=== PATIENT | male | born 1935 | race Caucasian/White ===

== ENCOUNTER 2022-08-06 13:46 | Emergency (ER) | payer OTHER ==
[~2022-08-06] VITALS: Ht 162.6 cm; Wt 72.6 kg
[2022-08-06 14:12] VITALS: BP 120/79; PULSE 81; RESP 18; TEMP 97.8; O2SAT 98
[2022-08-06 14:30] VITALS: O2SAT 98
[2022-08-06 16:36] LABS: BASOPHILS % (AUTO) 0.6 % (0.0-2.0); EOSINOPHILS # (AUTO) 0.1 K/uL (0-0.4); HEMATOCRIT 39.1 % (36-52); HEMOGLOBIN 13.3 g/dL (12.0-18.0); LYMPHOCYTES % (AUTO) 24.5 % (20.5-51.1); MEAN CORPUSCULAR HEMOGLOBIN 30 pg (27-31); MEAN CORPUSCULAR HGB CONC 34 g/dL (33-37); MEAN CORPUSCULAR VOLUME 87.3 fL (80-94); MONOCYTES # (AUTO) 0.5 K/uL (0.8-1.0); MONOCYTES % (AUTO) 6.2 % (1.7-9.3); NEUTROPHILS # (AUTO) 5.4 K/uL (1.8-7.7); NEUTROPHILS % (AUTO) 67.7 % (42.2-75.2); PLATELET COUNT (AUTO) 261 K/uL (140-450); RED BLOOD CELL COUNT(AUTO) 4.48 MIL/uL (4.20-6.10); RED CELL DISTRIBUTION WIDTH 13.7 % (11.6-13.7)
[2022-08-06 16:45] LABS: ALBUMIN 3.7 g/dL (3.4-5.0); ANION GAP 11.2 (8-16); ASPARTATE AMINOTRANSFERASE 20 U/L (15-37); CARBON DIOXIDE 27.5 mmol/L (21-32); CHLORIDE 103 mmol/L (98-107); GLUCOSE 105 mg/dL (74-106); LIPASE 68 U/L (73-393); POTASSIUM 4.7 mmol/L (3.5-5.1); SODIUM SERUM 137 mmol/L (136-145); UREA NITROGEN, BLOOD 13 mg/dL (7-18)
[2022-08-06] MEDS ORDERED: MAGN296S70 PO ×3 (17:46→18:33)
[2022-08-06] MEDS ORDERED: DOCU1TAB73 PO ×3 (17:46→18:33)
[2022-08-06] MEDS ORDERED: CIPR500T9 PO ×3 (17:46→18:33)
[2022-08-06] MEDS ORDERED: GLYPS RC ×3 (17:46→18:33)
[2022-08-06] MEDS ORDERED: NA P133N1 RC ×3 (17:46→18:33)
[2022-08-06] MEDS ORDERED: TAMS0.4C96 PO ×3 (17:46→18:33)
[2022-08-06] MEDS ORDERED: ONDA-188 PO ×2 (18:04→18:33)
[2022-08-06] MEDS ORDERED: IBUP-1842 PO ×2 (18:04→18:33)
== END 2022-08-06 18:05 | disposition home or self-care (01) ==
LOC: MED 13:46
DX: K56.41 Fecal impaction (principal); N20.1 Calculus of ureter; N30.90 Cystitis, unspecified without hematuria; K59.00 Constipation, unspecified; K46.9 Unspecified abdominal hernia without obstruction or gangrene; Z79.899 Other long term (current) drug therapy
CPT/HCPCS: 36415; 74176; 76870; 80053; 83690; 85025; 99285; Q0092

== ENCOUNTER 2022-09-01 13:59 | Inpatient (IN) | payer OTHER ==
[~2022-09-01] VITALS: Ht 162.6 cm; Wt 61.2 kg
[~2022-09-01 13:59] MED LIST: CIPR500T9 PO; DOCU1TAB73 PO; GLYPS RC; IBUP-1842 PO; MAGN296S70 PO; NA P133N1 RC; ONDA-188 PO; TAMS0.4C96 PO
[2022-09-01 14:21] VITALS: BP 175/115; PULSE 142; RESP 20; TEMP 97.7; O2SAT 97
[2022-09-01] MEDS ORDERED: NACL 0.9% 1,000 ML IV ONE (14:50)
[2022-09-01] MEDS ORDERED: MORPHINE SULFATE 4 MG/ML SYR IVP ONE (14:50)
[2022-09-01] MEDS ORDERED: ONDANSETRON 4 MG/2 ML VIAL IVP ONE (14:50)
[2022-09-01 15:00] VITALS: O2SAT 97
--- NOTE | 2022-09-01 15:00 | NUR ---
86 y/o MALE PATIENT PRESENTS TO ED WITH CHEIF COMPLAINT OF NON RADIATING LOWER ABD PAIN SINCE LAST NIGHT. PT PRESENTS SIGNS OF TACHYCARDIA WITH A HR OF 118. PT STATES HE ATE SPICY FOOD NIGHT BEFORE AND WAS GIVEN PEPTO BISMOL. DAUGHTER STATED PT HAS HX OF 2 HERNIAS EVALUATED BY A SURGEON 3 DAYS AGO. PT HAS BEEN DENIES N/V/D; SKIN IS PINK/WARM/DRY; AAOX4 WITH EVEN AND STEADY GAIT; LUNGS CLEAR BL; HR EVEN AND REGULAR; PT DENIES ANY FEVER, CP, SOB, OR COUGH AT THIS TIME; PATIENT STATES PAIN OF 9/10 AT THIS TIME; PATIENT POSITIONED FOR COMFORT; HOB ELEVATED; BEDRAILS UP X2; BED DOWN. ER MD MADE AWARE OF PT STATUS. PMHX INGUINAL HERNIA KIDNEY STONES NKA
[2022-09-01 15:08] LABS: BASOPHILS % (AUTO) 0.2 % (0.0-2.0); EOSINOPHILS % (AUTO) 0.1 % (0.0-4.0); HEMATOCRIT 40.2 % (36-52); HEMOGLOBIN 13.5 g/dL (12.0-18.0); LYMPHOCYTES # (AUTO) 1.4 K/uL (2.0-11.5); MEAN CORPUSCULAR HEMOGLOBIN 30 pg (27-31); MEAN CORPUSCULAR HGB CONC 34 g/dL (33-37); MEAN CORPUSCULAR VOLUME 88.6 fL (80-94); MONOCYTES # (AUTO) 0.3 K/uL (0.8-1.0); MONOCYTES % (AUTO) 4.3 % (1.7-9.3); NEUTROPHILS # (AUTO) 5.3 K/uL (1.8-7.7); NEUTROPHILS % (AUTO) 75.4 % (42.2-75.2); PLATELET COUNT (AUTO) 207 K/uL (140-450); RED BLOOD CELL COUNT(AUTO) 4.54 MIL/uL (4.20-6.10); RED CELL DISTRIBUTION WIDTH 14.4 % (11.6-13.7); WHITE BLOOD COUNT (AUTO) 7.1 K/uL (4.8-10.8)
--- NOTE | 2022-09-01 15:10 | NUR ---
PT HAS BEEN CHANGED INTO A GOWN AND POSITINED FOR COMFORT. PT HAS BEEN PLACED ON THE MONITOR. CALL LIGHT WITH IN REACH. FAMILY AT BEDSIDE.
[2022-09-01 15:22] LABS: ALBUMIN 4.1 g/dL (3.4-5.0); ANION GAP 14.8 (8-16); ASPARTATE AMINOTRANSFERASE 20 U/L (15-37); CARBON DIOXIDE 26.6 mmol/L (21-32); CHLORIDE 102 mmol/L (98-107); CREATININE 0.9 mg/dL (0.6-1.3); GLUCOSE 119 mg/dL (74-106); LIPASE 43 U/L (73-393); POTASSIUM 3.4 mmol/L (3.5-5.1); SODIUM SERUM 140 mmol/L (136-145); TOTAL BILIRUBIN 1.3 mg/dL (0.0-1.0); UREA NITROGEN, BLOOD 11 mg/dL (7-18)
--- NOTE | 2022-09-01 15:30 | NUR ---
PT HAS BEEN MEDICATED PER PROVIDERS ORDERS
[2022-09-01] MEDS ORDERED: DILTIAZEM 25 MG/5 ML VIAL IVP ONE ×2 (15:45→16:25)
--- NOTE | 2022-09-01 16:00 | NUR ---
PT HAS BEEN STRAIGHT CATHED PER PROVIDERS ORDERS. 100 MLS OF URINE OUTPUT COLLECTED.
[2022-09-01 16:17] LABS: APPEARANCE,URINE CLEAR (CLEAR); BILIRUBIN,URINE NEGATIVE (NEGATIVE); BLOOD, URINE 3+ (NEGATIVE); COLOR,URINE YELLOW (YELLOW); LEUKOCYTE ESTERASE ,URINE NEGATIVE (NEGATIVE); NITRITE, URINE NEGATIVE (NEGATIVE); UGLUCOSE NEGATIVE (NEGATIVE)
[2022-09-01] MEDS ORDERED: DILTIAZEM 125 MG in DEXTROSE 5% 100 ML IV ONE (16:25)
[2022-09-01 16:30] LABS: RBC,URINE 20-50 /HPF (0-5)
--- NOTE | 2022-09-01 16:30 | NUR ---
PER PROVIDERS ORDERS PT WILL BE ADMITTED AND PLACED ON CARDIZAM DRIP.
[2022-09-01] MEDS ORDERED: DILTIAZEM 125 MG in DEXTROSE 5% 100 ML IV SCH (16:34)
[2022-09-01] MEDS ORDERED: MORPHINE SULFATE 2 MG/ML SYR IVP STA (16:47)
[2022-09-01] MEDS ORDERED: HYDROcodone/APAP 5/325 MG 1 TAB TAB PO PRN (16:50)
[2022-09-01] MEDS ORDERED: ZOLPIDEM 5 MG TAB PO PRN (16:50)
[2022-09-01] MEDS ORDERED: ONDANSETRON 4 MG/2 ML VIAL IVP PRN (16:50)
[2022-09-01] MEDS ORDERED: MAG SULF 2000 MG/WATER PREMIX 50 ML IV PRN (16:50)
[2022-09-01] MEDS ORDERED: ACETAMINOPHEN 325 MG TAB PO PRN (16:50)
[2022-09-01] MEDS ORDERED: POTASSIUM CHLORIDE 10 MEQ TABER PO PRN (16:50)
[2022-09-01] MEDS ORDERED: KCL 20 MEQ IN 100 mL PREMIX 200 ML IV PRN (16:50)
[2022-09-01] MEDS ORDERED: LORazepam 1 MG TAB PO PRN (16:50)
[2022-09-01] MEDS ORDERED: MORPHINE SULFATE 4 MG/ML SYR IVP PRN (16:50)
--- NOTE | 2022-09-01 17:00 | NUR ---
PERSISTENT ALEJANDRO RVR, HYPERTENSIVE ADDITIONAL DOSE OF CARDIZEM BOLUS GIVEN
--- NOTE | 2022-09-01 17:06 | NUR ---
BOOD PRESSURE 97/56, HR =82 MD BEBETO MADE AWARE . CARDIZEM GTT HELD
[2022-09-01] MEDS ORDERED: hydrALAZINE 20 MG/ML VIAL IVP PRN (17:35)
--- NOTE | 2022-09-01 17:43 | NUR ---
The patient's care was reviewed and supervised by JOSE SHAIKH RN.
--- NOTE | 2022-09-01 17:44 | NUR ---
DR ALARCON NOTIFIED TO UPDATE HIM OF PT STATUS ,VS, HEART RYTHM, ORDER RECEIVED TO DOWNGRADE PT TO TELE
--- NOTE | 2022-09-01 18:16 | NUR ---
PT REFUSED MORPHINE, STATED HE HAS NO ABDOMINAL PAIN AT THIS TIME. RESTING COMFORTABLY AT THIS TIME.
--- NOTE | 2022-09-01 18:17 | NUR ---
Patient will be admitted to care of DR. ALARCON. Admited to TELE. Will go to room 123B. Belongings list completed. Report to SERGE ACOSTA. Addendum: 09/01/22 at 1830 by [email or web address] REPORT GIVEN TO SIMBA ACOSTA
[2022-09-01] MEDS: FUROSEMIDE 40 MG/4 ML VIAL IVP SCH ×2 (18:28→21:31)
[2022-09-01] MEDS: METOPROLOL 50 MG TAB PO SCH (18:28)
[2022-09-01 18:31] VITALS: BP 146/104; PULSE 113; RESP 18; TEMP 97.2; O2SAT 99
--- NOTE | 2022-09-01 18:34 | NUR ---
patient received from ER via rcapron A/OX4 , VS TAKEN BP HIGH MEDS GIVEN , MONITOR APPLIED , SKIN INTACT BED REST , TWO IV RIGHT WRIST 20GAGE INTACT , AND LEFT WRIST 20GAGE INTACT , SAFETY BPROACTION ON NPLACE , SIDE RAILS UP X2 , BED IN LOWER POSITION , CALL LIGHT WITHIN REACH , ON NASAL CANNULA 2 LITER O2 , PATIENT STILL UNDER OBSERVE .
[2022-09-01 18:39] VITALS: PULSE 113; RESP 18; O2SAT 99
--- NOTE | 2022-09-01 19:17 | NUR ---
report given to morelia bell night nurses all his question answered .
--- NOTE | 2022-09-01 19:18 | NUR ---
RECEIVED BEDSIDE REPORT FROM DAYSHIFT RN FOR CONTINUITY OF CARE. PATIENT IS AWAKE AND STABLE. A&OX3. YORUBA SPEAKING ONLY. OFFERED VOYCE BUT PATIENT PREFERS FAMILY TO TRANSLATE BASIC NEEDS. FAMILY AT BEDSIDE CURRENTLY. ABLE TO FOLLOW COMMANDS AND VERBALIZE NEEDS. DENIES PAIN. ON ROOM AIR WITH NO APPARENT S/SX OF ACUTE DISTRESS. RESPIRATIONS EVEN AND UNLABORED. PATIENT IS CURRENTLY ON BEDREST. PATIENT IS SOILED. CHANGED PATIENT WITH JONE FLOORING MECHANIC. TOLERATED WELL. LAC 20G AND RFA 20G PATENT/INTACT SL. POC AND WHITE COMMUNICATION BOARD UPDATED. ALL SAFETY MEASURES IN PLACE. CALL LIGHT WITHIN REACH. ENCOURAGED TO USE CALL LIGHT FOR ANY NEEDS/ASSISTANCE. BED IN LOW/LOCKED POSITION. SIDE RAILS X2 UP. WILL CONTINUE TO MONITOR.
[2022-09-01 20:00] VITALS: BP 151/104; PULSE 123; PULSE 138; RESP 18; TEMP 99; O2SAT 99
--- NOTE | 2022-09-01 20:00 | NUR ---
Patient's Plan of Care was discussed and reviewed with PERI: LUCILA
[2022-09-01] MEDS: METOPROLOL 5 MG/5 ML VIAL IV PRN (20:14)
[2022-09-01] MEDS ORDERED: METOPROLOL 50 MG TAB PO SCH (21:00)
--- NOTE | 2022-09-01 21:20 | NUR ---
PATIENT IS CURRENTLY CONFUSED. RE-ORIENTED TO HOSPITAL ENVIRONMENT. BED ALARM ACTIVATED AND WILL ENSURE FREQUENT ROUND FOR SAFETY. PATIENT IS SOILED. CLEANED AND CHANGED PATIENT. DENIES PAIN. RESPIRATIONS EVEN AND UNLABORED WITH NO APPARENT S/SX OF ACUTE DISTRESS. WHITE COMMUNICATION BOARD UPDATED. ALL SAFETY MEASURES IN PLACE. CALL LIGHT WITHIN REACH. BED IN LOW/LOCKED POSITION. WILL CONTINUE TO MONITOR.
--- NOTE | 2022-09-01 23:30 | NUR ---
PATIENT CONTINUES TO BE RESTLESS/CONFUSED. SEVERAL ATTEMPTS TO GET OUT OF BED. REORIENTED PATIENT TO SURROUNDINGS. CONTACTED MD FOR IV PRN.
[2022-09-01] MEDS ORDERED: LORazepam 2 MG/ML VIAL IVP ONE (23:45)
[2022-09-02] VITALS (7 sets, daily range): BP systolic 121–164; BP diastolic 64–85; PULSE 83–130; RESP 16–20; TEMP 96.9–98.9; O2SAT 96–99
[2022-09-02] MEDS ORDERED: LORazepam 2 MG/ML VIAL ONE (00:09)
--- NOTE | 2022-09-02 01:20 | NUR ---
PATIENT IS CALM, RESTING, AND ASLEEP WITH NO FACIAL GRIMACING. FLACC=0. CHEST IS RISING AND FALLING SYMMETRICALLY. RESPIRATIONS EVEN AND UNLABORED WITH NO APPARENT S/SX OF ACUTE DISTRESS. WHITE COMMUNICATION BOARD UPDATED. ALL SAFETY MEASURES IN PLACE. CALL LIGHT WITHIN REACH. BED IN LOW/LOCKED POSITION. WILL CONTINUE TO MONITOR.
[2022-09-02] MEDS: METOPROLOL 5 MG/5 ML VIAL IV PRN (02:50)
--- NOTE | 2022-09-02 03:00 | NUR ---
PATIENT'S BP 170/110. ENDORSED TO ROCCO RN FOR IVP PRN COVERAGE PER MD ORDER. ADMINISTERED PRN PER MD ORDER. TOLERATED WELL. WILL REASSESS BP AT 0350. FLACC=0. RESPIRATIONS EVEN AND UNLABORED WITH NO APPARENT S/SX OF ACUTE DISTRESS. CHEST IS RISING AND FALLING SYMMETRICALLY. WHITE COMMUNICATION BOARD UPDATED. ALL SAFETY MEASURES IN PLACE. CALL LIGHT WITHIN REACH. BED IN LOW/LOCKED POSITION. WILL CONTINUE TO MONITOR.
[2022-09-02 04:37] LABS: BASOPHILS % (AUTO) 0.4 % (0.0-2.0); EOSINOPHILS % (AUTO) 0.2 % (0.0-4.0); HEMATOCRIT 38.5 % (36-52); HEMOGLOBIN 13.3 g/dL (12.0-18.0); LYMPHOCYTES # (AUTO) 1.4 K/uL (2.0-11.5); LYMPHOCYTES % (AUTO) 16.9 % (20.5-51.1); MEAN CORPUSCULAR HEMOGLOBIN 30 pg (27-31); MEAN CORPUSCULAR HGB CONC 35 g/dL (33-37); MEAN CORPUSCULAR VOLUME 86.7 fL (80-94); MONOCYTES # (AUTO) 0.7 K/uL (0.8-1.0); MONOCYTES % (AUTO) 8.2 % (1.7-9.3); NEUTROPHILS # (AUTO) 6.4 K/uL (1.8-7.7); NEUTROPHILS % (AUTO) 74.3 % (42.2-75.2); PLATELET COUNT (AUTO) 198 K/uL (140-450); RED BLOOD CELL COUNT(AUTO) 4.44 MIL/uL (4.20-6.10); WHITE BLOOD COUNT (AUTO) 8.6 K/uL (4.8-10.8)
[2022-09-02 05:20] LABS: ANION GAP 11.9 (8-16); CHLORIDE 114 mmol/L (98-107); CREATININE 0.9 mg/dL (0.6-1.3); GLUCOSE 124 mg/dL (74-106); POTASSIUM 3.9 mmol/L (3.5-5.1); SODIUM SERUM 155 mmol/L (136-145); UREA NITROGEN, BLOOD 10 mg/dL (7-18)
--- NOTE | 2022-09-02 05:20 | NUR ---
CLEANED AND CHANGED PATIENT WITH JONE DRIVER RECRUITER. TOLERATED WELL. REASSESSED BP AT 131/84 130 BPM. FLACC=0. RESPIRATIONS EVEN AND UNLABORED WITH NO APPARENT S/SX OF ACUTE DISTRESS. WHITE COMMUNICATION BOARD UPDATED. ALL SAFETY MEASURES IN PLACE. CALL LIGHT WITHIN REACH. BED IN LOW/LOCKED POSITION. WILL CONTINUE TO MONITOR.
--- NOTE | 2022-09-02 07:20 | NUR ---
ENDORSED PATIENT TO TED WIHTT FOR CONTINUITY OF CARE. PATIENT IS STABLE.
--- NOTE | 2022-09-02 07:25 | NUR ---
RECEIVED PT FROM BRACER FOR CONTINUITY OF CARE. ASLEEP AT THIS TIME BUT ABUSABLE. RESP. EVEN AND UNLABORED. ON CONTINUOUS O2 @ 2L/NC. IV SITE INTACT. ON SALINE LOCK. NOT IN ANY DISTRESS OR DISCOMFORT. CALL LIGHT KEPT WITHIN REACH. WILL CONTINUE TO MONITOR.
--- NOTE | 2022-09-02 07:45 | NUR ---
Patient's Plan of Care was discussed and reviewed with PERI: MATEUS
[2022-09-02] MEDS ORDERED: DIGOXIN 0.25 MG/ML AMP IV SCH (08:03)
[2022-09-02] MEDS ORDERED: MAG SULF 2000 MG/WATER PREMIX 50 ML IV SCH (08:05)
--- NOTE | 2022-09-02 09:12 | NUR ---
PATIENT HAS BEEN SCREENED AND CATEGORIZED HIGH NUTRITION RISK. PATIENT WILL BE SEEN WITHIN 1-2 DAYS OF ADMISSION. 09/02/22-09/03/[address] BY JOE HOSKINS RD
--- NOTE | 2022-09-02 09:40 | NUR ---
DIGOXIN .5 MG IVP WAS GIVEN BY TIFFANIE ACOSTA. TOLERATED WELL.
[2022-09-02] MEDS: TAMSULOSIN 0.4 MG CAP PO SCH (12:23)
[2022-09-02] MEDS: METOPROLOL 50 MG TAB PO SCH ×2 (12:23→21:00)
[2022-09-02] MEDS: DOCUSATE SODIUM 100 MG GELCAP PO SCH (12:23)
--- NOTE | 2022-09-02 12:33 | NUR ---
SCHEDULED MEDICATIONS GIVEN. TOLERATED WELL.
--- NOTE | 2022-09-02 13:19 | NUR ---
DC PLANNING 86 YEAR OLD MALE PATIENT,AWAKE AND FOLLOWS SIMPLE COMMAND ADMITTED TO TELEMETRY FOR ABDOMINAL PAIN .ON 2 L NC. PATIENT HAS A HX OF NAUSEA AFTER EATING SPICY FOOD.PATIENT HAS HX OF HERNIA WELL BUT EVALUATED FOR SURGERY AND NOT A CANDIDATE.PATIENT WAS IN A.FIB WITH RVR IN ED AND WAS GIVEN DILTIAZEM.ON DIGOXIN IVP .METOPROLOL AND HYDRALAZINE FOR HTN.DC PLAN -DC HOME WHEN PATIENT RESPONDS TO TX AND PATIENT CONDITION IMPROVES.CM TO FOLLOW.
--- NOTE | 2022-09-02 13:47 | NUR ---
09/02/22 RD INITIAL ASSESSMENT COMPLETED PLEASE REFER TO NUTRITION ASSESSMENT UNDER CARE ACTIVITY FOR ESTIMATED NUTRITIONAL NEEDS. 1. CONTINUE CARDIAC DIET TOLERATED 2. RD WILL CONTINUE TO MONITOR PO INTAKE, WEIGHT, GI ISSUES AND NUTRITION RELATED LAB VALUES. 3. RD TO FOLLOW-UP 3-5 DAYS, MODERATE RISK EDILIA ACEVES, AMANDEEP
[2022-09-02] MEDS: DIGOXIN 0.25 MG/ML AMP IV SCH ×2 (14:18→16:00)
--- NOTE | 2022-09-02 14:18 | NUR ---
DIGOXIN 0.25MG IVP WAS GIVEN BY TIFFANIE ACOSTA. WASTED DIGOXIN 0.25MG.
[2022-09-02] MEDS ORDERED: DIGOXIN 0.25 MG/ML AMP IV ONE (18:31)
--- NOTE | 2022-09-02 18:44 | NUR ---
DIGOXIN 0.25 MG @1600 WAS NOT GIVEN D/T HR 84 TO 86.
--- NOTE | 2022-09-02 19:00 | NUR ---
BEDSIDE REPORT FROM DIAMOND CLEANER FOR CONTINUITY OF CARE. REMAINS STABLE.
--- NOTE | 2022-09-02 19:01 | NUR ---
RECEIVED BEDSIDE REPORT FROM TED WHITT FOR CONTINUITY OF CARE. PATIENT IS ASLEEP AND STABLE. FLACC=0. MONTENEGRIN SPEAKING ONLY. OFFERED VOYCE BUT PATIENT PREFERS FAMILY TO TRANSLATE BASIC NEEDS. FAMILY AT BEDSIDE. ON 2L VIA NC WITH NO APPARENT S/SX OF ACUTE DISTRESS. RESPIRATIONS EVEN AND UNLABORED. PATIENT IS CURRENTLY ON BEDREST. POC AND WHITE COMMUNICATION BOARD UPDATED. ALL SAFETY MEASURES IN PLACE. CALL LIGHT WITHIN REACH. BED IN LOW/LOCKED POSITION. SIDE RAILS X2 UP. WILL CONTINUE TO MONITOR.
--- NOTE | 2022-09-02 20:00 | NUR ---
Patient's Plan of Care was discussed and reviewed with LUCILA WHITT:
--- NOTE | 2022-09-02 21:15 | NUR ---
SCHEDULED LOPRESSOR HELD DUE TO PATIENT SLEEPING. AROUSED 3 TIMES BUT PATIENT REMAINED ASLEEP. FLACC=0. CHEST IS RISING AND FALLING SYMMETRICALLY. RESPIRATIONS EVEN AND UNLABORED WITH NO APPARENT S/SX OF ACUTE DISTRESS. PATIENT IS SOILED. CLEANED AND CHANGED PATIENT WITH JACQUES SPRAYER OPERATOR. WHITE COMMUNICATION BOARD UPDATED. ALL SAFETY MEASURES IN PLACE. CALL LIGHT WITHIN REACH. BED IN LOW/LOCKED POSITION. WILL CONTINUE TO MONITOR.
--- NOTE | 2022-09-02 23:15 | NUR ---
CLEANED AND CHANGED PATIENT WITH JACQUES TRANSITION SPECIALIST. TOLERATED WELL. DENIES PAIN. RESPIRATIONS EVEN AND UNLABORED WITH NO APPARENT S/SX OF ACUTE DISTRESS. WHITE COMMUNICATION BOARD UPDATED. ALL SAFETY MEASURES IN PLACE. CALL LIGHT WITHIN REACH. BED IN LOW/LOCKED POSITION. WILL CONTINUE TO MONITOR.
[2022-09-03] VITALS: BP 144/80; PULSE 102; PULSE 98; RESP 16; TEMP 98; O2SAT 98
--- NOTE | 2022-09-03 01:15 | NUR ---
ESTABLISHED 22G ON LEFT WRIST IN 1 ATTEMPT. TOLERATED WELL. CLEANED AND CHANGED PATIENT. TOLERATED WELL. DENIES PAIN. RESPIRATIONS EVEN AND UNLABORED WITH NO APPARENT S/SX OF ACUTE DISTRESS. WHITE COMMUNICATION BOARD UPDATED. ALL SAFETY MEASURES IN PLACE. CALL LIGHT WITHIN REACH. BED IN LOW/LOCKED POSITION. SIDE RAILS X2 UP. WILL CONTINUE TO MONITOR.
--- NOTE | 2022-09-03 03:15 | NUR ---
PATIENT AWOKE AND SLIGHTLY CONFUSED. RE-ORIENTED TO HOSPITAL SURROUNDING. PATIENT VERBALIZED UNDERSTANDING. DENIES PAIN. RESPIRATIONS EVEN AND UNLABORED WITH NO APPARENT S/SX OF ACUTE DISTRESS. WHITE COMMUNICATION BOARD UPDATED. ALL SAFETY MEASURES IN PLACE. CALL LIGHT WITHIN REACH. BED IN LOW/LOCKED POSITION. SIDE RAILS X2 UP. WILL CONTINUE TO MONITOR.
[2022-09-03 04:00] VITALS: BP 137/65; PULSE 111; PULSE 97; RESP 16; TEMP 98.1; O2SAT 98
[2022-09-03] MEDS: METOPROLOL 50 MG TAB PO SCH ×3 (05:00→21:52)
--- NOTE | 2022-09-03 05:20 | NUR ---
CLEANED AND CHANGED PATIENT WITH JACQUES BASS GUITAR TEACHER. TOLERATED WELL. ALL NEEDS MET AT THIS TIME. FLACC=0. RESPIRATIONS EVEN AND UNLABORED WITH NO APPARENT S/SX OF ACUTE DISTRESS. WHITE COMMUNICATION BOARD UPDATED. ALL SAFETY MEASURES IN PLACE. CALL LIGHT WITHIN REACH. BED IN LOW/LOCKED POSITION. WILL CONTINUE TO MONITOR.
--- NOTE | 2022-09-03 07:05 | NUR ---
RECEIVED REPORT FROM BARREL STAVE INSPECTOR NURSE FOR CONTINUITY OF CARE. PT STABLE AT THIS TIME.
--- NOTE | 2022-09-03 07:05 | NUR ---
ENDORSED PATIENT TO JOE RN FOR CONTINUITY OF CARE. PATIENT IS STABLE.
[2022-09-03 07:08] LABS: ANION GAP 9.9 (8-16); CARBON DIOXIDE 30.2 mmol/L (21-32); CHLORIDE 102 mmol/L (98-107); CREATININE 0.8 mg/dL (0.6-1.3); GLUCOSE 100 mg/dL (74-106); POTASSIUM 3.1 mmol/L (3.5-5.1); SODIUM SERUM 139 mmol/L (136-145); UREA NITROGEN, BLOOD 15 mg/dL (7-18)
[2022-09-03 08:00] VITALS: BP 155/94; PULSE 112; PULSE 125; PULSE 97; RESP 18; TEMP 97.2; O2SAT 97
[2022-09-03 08:11] LABS: BASOPHILS % (AUTO) 0.3 % (0.0-2.0); EOSINOPHILS % (AUTO) 0.1 % (0.0-4.0); HEMOGLOBIN 13.9 g/dL (12.0-18.0); LYMPHOCYTES # (AUTO) 0.9 K/uL (2.0-11.5); LYMPHOCYTES % (AUTO) 8.9 % (20.5-51.1); MEAN CORPUSCULAR HEMOGLOBIN 30 pg (27-31); MEAN CORPUSCULAR HGB CONC 35 g/dL (33-37); MEAN CORPUSCULAR VOLUME 86.5 fL (80-94); MONOCYTES # (AUTO) 0.7 K/uL (0.8-1.0); MONOCYTES % (AUTO) 6.4 % (1.7-9.3); NEUTROPHILS # (AUTO) 8.9 K/uL (1.8-7.7); NEUTROPHILS % (AUTO) 84.3 % (42.2-75.2); PLATELET COUNT (AUTO) 181 K/uL (140-450); RED BLOOD CELL COUNT(AUTO) 4.62 MIL/uL (4.20-6.10); RED CELL DISTRIBUTION WIDTH 14.2 % (11.6-13.7); WHITE BLOOD COUNT (AUTO) 10.5 K/uL (4.8-10.8)
[2022-09-03] MEDS: TAMSULOSIN 0.4 MG CAP PO SCH (09:36)
[2022-09-03] MEDS: DIGOXIN 0.125 MG TAB PO SCH (09:36)
[2022-09-03] MEDS: DOCUSATE SODIUM 100 MG GELCAP PO SCH (09:36)
[2022-09-03] MEDS ORDERED: FUROSEMIDE 40 MG/4 ML VIAL IVP SCH (11:00)
[2022-09-03 12:00] VITALS: BP 146/86; PULSE 91; PULSE 94; RESP 16; TEMP 98.8; O2SAT 98
[2022-09-03 16:00] VITALS: BP 153/92; PULSE 102; PULSE 91; RESP 18; TEMP 98.9; O2SAT 98
--- NOTE | 2022-09-03 19:27 | NUR ---
ENDORSED TO SUPERVISOR SKI PRODUCTION NURSE FOR CONTINUITY OF CARE. PT STABLE AT THIS TIME.
--- NOTE | 2022-09-03 19:30 | NUR ---
RECEIVED REPORT FROM DAY SHIFT NURSE JOE FOR CONTINUITY OF CARE. PATIENT IS A&O X2, FAROESE SPEAKING. PATIENT IS ON 2L NC, BREATHING IS NORMAL WITH SYMMETRICAL RISE AND FALL OF CHEST. IV IS A 22G L WRIST; NO FLUIDS RUNNING AT THIS TIME (SALINE LOCKED). PATIENT IS SLEEPING, LYING IN SEMI-FOWLERS POSITION WITH FAMILY AT BEDSIDE. BED IS IN LOWEST POSITION, WHEELS LOCKED, CALL LIGHT IN PLACE. WILL CONTINUE TO OBSERVE PATIENT.
[2022-09-03 20:00] VITALS: BP 121/97; PULSE 107; PULSE 109; RESP 18; TEMP 96.5; O2SAT 96
--- NOTE | 2022-09-03 22:00 | NUR ---
2100 MEDICATION WAS ADMINISTERED TO PATIENT SUCCESSFULLY WITHOUT ANY ISSUES WITH SWALLOWING. PATIENT IS LYING IN SEMI-FOWLERS POSITION. WILL CONTINUE TO OBSERVE PATIENT.
[2022-09-04] VITALS: BP 150/89; PULSE 104; PULSE 80; RESP 18; TEMP 97; O2SAT 96
--- NOTE | 2022-09-04 01:00 | NUR ---
LOOKED IN ON PATIENT. PATIENT WAS SLEEPING, LYING SEMI-FOWLERS POSITION. BREATHING WAS NORMAL WITH SYMMETRICAL RISE AND FALL OF CHEST. WILL CONTINUE TO OBSERVE PATIENT.
[2022-09-04 04:00] VITALS: BP 138/90; PULSE 128; PULSE 87; RESP 18; TEMP 97; O2SAT 100
--- NOTE | 2022-09-04 04:47 | NUR ---
PATIENT HAD VOIDED AND HAD SCANT AMOUNT OF STOOL. PATIENT WAS CLEANED WITH THE ASSISTANCE OF DAVE PENNINGTON. NEW DRAW SHEET, CHUCKS, AND BLANKETS WERE APPLIED TO BED. PATIENT TOLERATED CLEANING WELL. PATIENT'S BREATHING IS NORMAL WITH SYMMETRICAL RISE AND FALL OF CHEST. WILL CONTINUE TO OBSERVE PATIENT.
[2022-09-04 05:12] LABS: BASOPHILS % (AUTO) 0.3 % (0.0-2.0); EOSINOPHILS # (AUTO) 0.1 K/uL (0-0.4); EOSINOPHILS % (AUTO) 0.8 % (0.0-4.0); HEMATOCRIT 38.2 % (36-52); HEMOGLOBIN 13.4 g/dL (12.0-18.0); LYMPHOCYTES # (AUTO) 1.7 K/uL (2.0-11.5); LYMPHOCYTES % (AUTO) 16.4 % (20.5-51.1); MEAN CORPUSCULAR HEMOGLOBIN 30 pg (27-31); MEAN CORPUSCULAR HGB CONC 35 g/dL (33-37); MEAN CORPUSCULAR VOLUME 86.5 fL (80-94); MONOCYTES # (AUTO) 0.8 K/uL (0.8-1.0); NEUTROPHILS # (AUTO) 7.7 K/uL (1.8-7.7); NEUTROPHILS % (AUTO) 74.5 % (42.2-75.2); PLATELET COUNT (AUTO) 177 K/uL (140-450); RED BLOOD CELL COUNT(AUTO) 4.41 MIL/uL (4.20-6.10); RED CELL DISTRIBUTION WIDTH 13.8 % (11.6-13.7); WHITE BLOOD COUNT (AUTO) 10.4 K/uL (4.8-10.8)
[2022-09-04] MEDS: METOPROLOL 50 MG TAB PO SCH ×2 (05:50→12:24)
[2022-09-04 06:23] LABS: ANION GAP 11.9 (8-16); CARBON DIOXIDE 26.8 mmol/L (21-32); CHLORIDE 100 mmol/L (98-107); CREATININE 0.7 mg/dL (0.6-1.3); GLUCOSE 100 mg/dL (74-106); POTASSIUM 3.7 mmol/L (3.5-5.1); SODIUM SERUM 135 mmol/L (136-145); UREA NITROGEN, BLOOD 16 mg/dL (7-18)
--- NOTE | 2022-09-04 07:15 | NUR ---
RECEIVED REPORT FROM EARLY CHILDHOOD EDUCATION SPECIALIST NURSE FOR CONTINUITY OF CARE. PT STABLE AT THIS TIME.
--- NOTE | 2022-09-04 07:31 | NUR ---
ENDORSED TO DAY SHIFT NURSE JOE FOR CONTINUITY OF CARE. PATIENT IS STABLE.
[2022-09-04 08:00] VITALS: BP 142/99; PULSE 104; PULSE 99; RESP 18; TEMP 97.3; O2SAT 96
[2022-09-04] MEDS: DOCUSATE SODIUM 100 MG GELCAP PO SCH (09:31)
[2022-09-04] MEDS: TAMSULOSIN 0.4 MG CAP PO SCH (09:32)
[2022-09-04] MEDS: DIGOXIN 0.125 MG TAB PO SCH (09:32)
[2022-09-04 12:00] VITALS: BP 145/96; PULSE 87; PULSE 90; RESP 16; TEMP 97.9; O2SAT 99
[2022-09-04] MEDS ORDERED: METOPROLOL 25 MG TAB PO SCH (12:46)
[2022-09-04] MEDS ORDERED: METO50TA99 PO (13:26)
[2022-09-04] MEDS ORDERED: APIX5TAB PO (13:26)
[2022-09-04] MEDS ORDERED: DIGO0.1211 PO (13:26)
[2022-09-04 13:38] VITALS: BP 145/96; PULSE 87; RESP 16; TEMP 97.9
[2022-09-04] MEDS ORDERED: METOPROLOL 50 MG TAB PO SCH (21:00)
== END 2022-09-04 14:31 | disposition home or self-care (01) | DRG 693 ==
LOC: MED 13:59 → MTU 16:50 → OBSVTOIN 16:50 → MTU 17:36
PROVIDERS: ADMIT Internal Medicine; ATTEND Internal Medicine
DX: N20.1 Calculus of ureter (principal); J96.01 Acute respiratory failure with hypoxia; N13.8 Other obstructive and reflux uropathy; E87.0 Hyperosmolality and hypernatremia; I48.91 Unspecified atrial fibrillation; I11.0 Hypertensive heart disease with heart failure; N40.1 Benign prostatic hyperplasia with lower urinary tract symptoms; F03.90 Unspecified dementia, unspecified severity, without behavioral disturbance, psychotic disturbance, mood disturbance, and anxiety; M43.17 Spondylolisthesis, lumbosacral region; I50.9 Heart failure, unspecified; K40.90 Unilateral inguinal hernia, without obstruction or gangrene, not specified as recurrent; I25.10 Atherosclerotic heart disease of native coronary artery without angina pectoris; Z79.01 Long term (current) use of anticoagulants; Z87.442 Personal history of urinary calculi; Z90.49 Acquired absence of other specified parts of digestive tract
CPT/HCPCS: 36415; 71045; 80048; 80053; 81001; 83690; 83735; 83880; 84484; 85025; 87081; 93005; 96374; 96375; 96376; 99291; J0360; J1160; J1940; J2060; J2270; J2405; J3475; J3490; J7060

== ENCOUNTER 2022-11-19 14:02 | Emergency (ER) | payer MEDICARE ==
[~2022-11-19] VITALS: Ht 160 cm; Wt 68.0 kg
[~2022-11-19 14:02] MED LIST changes: +APIX5TAB PO; -CIPR500T9 PO; +DIGO0.1211 PO; -IBUP-1842 PO; +METO50TA99 PO
[2022-11-19 14:17] VITALS: BP 177/96; PULSE 87; RESP 20; TEMP 99.3; O2SAT 99
[2022-11-19] MEDS ORDERED: NACL 0.9% 1,000 ML IV SCH (14:40)
[2022-11-19] MEDS ORDERED: PIPERACILLIN/TAZOBACTAM 3.375 GM in DEXT 5% MINI-BAG PLUS 50 ML IV ONE (14:40)
[2022-11-19] MEDS ORDERED: ONDANSETRON 4 MG/2 ML VIAL IVP ONE (15:10)
[2022-11-19 15:18] LABS: BASOPHILS % (AUTO) 0.2 % (0.0-2.0); EOSINOPHILS % (AUTO) 0.3 % (0.0-4.0); HEMATOCRIT 37.8 % (36-52); LYMPHOCYTES # (AUTO) 1.4 K/uL (2.0-11.5); LYMPHOCYTES % (AUTO) 14.4 % (20.5-51.1); MEAN CORPUSCULAR HEMOGLOBIN 31 pg (27-31); MEAN CORPUSCULAR HGB CONC 34 g/dL (33-37); MEAN CORPUSCULAR VOLUME 88.8 fL (80-94); MONOCYTES # (AUTO) 0.3 K/uL (0.8-1.0); NEUTROPHILS % (AUTO) 82.1 % (42.2-75.2); PLATELET COUNT (AUTO) 229 K/uL (140-450); RED BLOOD CELL COUNT(AUTO) 4.26 MIL/uL (4.20-6.10); RED CELL DISTRIBUTION WIDTH 14.2 % (11.6-13.7); WHITE BLOOD COUNT (AUTO) 9.7 K/uL (4.8-10.8)
[2022-11-19 15:28] LABS: ALANINE AMINOTRANSFERASE 17 U/L (12-78); ALBUMIN 3.9 g/dL (3.4-5.0); ALKALINE PHOSPHATASE 83 U/L (50-136); ANION GAP 9.8 (8-16); ASPARTATE AMINOTRANSFERASE 16 U/L (15-37); CALCIUM 9.1 mg/dL (8.5-10.1); CARBON DIOXIDE 29.2 mmol/L (21-32); CHLORIDE 103 mmol/L (98-107); CREATININE 0.8 mg/dL (0.6-1.3); GLUCOSE 114 mg/dL (74-106); SODIUM SERUM 138 mmol/L (136-145); TOTAL PROTEIN, SERUM 7.7 g/dL (6.4-8.2); UREA NITROGEN, BLOOD 20 mg/dL (7-18)
[2022-11-19 15:35] LABS: LACTIC ACID 0.9 mmol/L (0.4-2.0)
[2022-11-19] MEDS ORDERED: PIPERACILLIN/TAZOBACTAM 3.375 GM VIAL IV ONE (15:36)
[2022-11-19 15:42] LABS: INR 1.05 (0.8-1.2); PARTIAL THROMBOPLASTIN TIME 23.2 secs (22-35.6)
[2022-11-19] MEDS ORDERED: DOCUSATE SODIUM 100 MG GELCAP PO PRN (17:15)
[2022-11-19] MEDS ORDERED: DEXT 5% /NACL 0.9% 1,000 ML IV SCH (17:15)
[2022-11-19] MEDS ORDERED: ACETAMINOPHEN 325 MG TAB PO PRN (17:15)
[2022-11-19] MEDS ORDERED: guaiFENesin DM 200/20 MG-10 ML 10 ML UDC PO PRN (17:15)
[2022-11-19] MEDS ORDERED: POTASSIUM CHLORIDE 10 MEQ TABER PO PRN (17:15)
[2022-11-19] MEDS ORDERED: ONDANSETRON 4 MG/2 ML VIAL IM/IVP PRN (17:15)
[2022-11-19] MEDS ORDERED: HYDROcodone/APAP 7.5/325 MG 1 TAB PO PRN (17:15)
[2022-11-19] MEDS ORDERED: ZOLPIDEM 5 MG TAB PO PRN (17:15)
[2022-11-19] MEDS ORDERED: MORPHINE SULFATE 2 MG/ML SYR IVP PRN (17:15)
[2022-11-19] MEDS ORDERED: hydrALAZINE 20 MG/ML VIAL IVP PRN (17:20)
[2022-11-19] MEDS ORDERED: DILTIAZEM 25 MG/5 ML VIAL IVP ONE (17:40)
[2022-11-19 18:53] LABS: CHOL/HDL RATIO 2.7 (1-4.5); FREE T4 (FREE THYROXINE) 1.09 ng/dL (0.76-1.46); PHOSPHORUS 3.6 mg/dL (2.5-4.9); THYROID STIMULATING HORMONE 1.49 uIU/mL (0.34-3.74)
[2022-11-19 20:22] LABS: APPEARANCE,URINE CLEAR (CLEAR); BILIRUBIN,URINE NEGATIVE (NEGATIVE); BLOOD, URINE TRACE-I (NEGATIVE); COLOR,URINE YELLOW (YELLOW); LEUKOCYTE ESTERASE ,URINE NEGATIVE (NEGATIVE); NITRITE, URINE NEGATIVE (NEGATIVE); PROTEIN,URINE NEGATIVE (NEGATIVE); UGLUCOSE NEGATIVE (NEGATIVE); UROBILINOGEN,URINE 0.2 EU/dL (0.2 - 1)
[2022-11-19 20:44] LABS: WBC,URINE 0-5 /HPF (0-5)
[2022-11-19 20:45] LABS: BACTERIA,URINE 1+ /HPF (None Seen); SQUAMOUS EPITHELIAL CELL,UR 0-3 (FEW) /LPF (0-3 (FEW))
[2022-11-19] MEDS ORDERED: PIPERACILLIN/TAZOBACTAM 3.375 GM in DEXTROSE 5% 50 ML IV SCH (21:00)
[2022-11-19 21:24] VITALS: BP 125/98; PULSE 104; RESP 12; TEMP 98.1; O2SAT 98
[2022-11-20] MEDS ORDERED: PANTOPRAZOLE 40 MG TABEC PO SCH (09:00)
[2022-11-21 09:07] LABS: T4 (THYROXINE) 7.3 ug/dL (4.5-12.0)
[2022-11-22 06:08] LABS: HEMOGLOBIN A1C 5.3 % (4.8-5.6)
== END 2022-11-19 21:23 | disposition short-term general hospital (02) ==
LOC: MED 14:02 → UNDOADMIN 18:05 → MTU 18:05 → MED 21:23 → UNDODISIN 21:24
DX: K40.90 Unilateral inguinal hernia, without obstruction or gangrene, not specified as recurrent (principal); I48.91 Unspecified atrial fibrillation; R11.10 Vomiting, unspecified; I10 Essential (primary) hypertension; F03.90 Unspecified dementia, unspecified severity, without behavioral disturbance, psychotic disturbance, mood disturbance, and anxiety; Z79.01 Long term (current) use of anticoagulants; Z79.899 Other long term (current) drug therapy
CPT/HCPCS: 36415; 71045; 74018; 74176; 80053; 80061; 81001; 82150; 83036; 83605; 83690; 83735; 83880; 84100; 84436; 84439; 84443; 84479; 84484; 85025; 85610; 85730; 86886; 86900; 86901; 87040; 87086; 93005; 96361; 96365; 96375; 99291; J2405; J2543; J7060; Q0092